=== PATIENT | female | born 1990 | race Caucasian/White ===

== ENCOUNTER 2017-01-27 11:29 | Emergency (ER) | payer SELFPAY | END 2017-01-27 12:55 | disposition left against medical advice (07) | LOC: ER 11:29 | DX: Z53.20 Procedure and treatment not carried out because of patient's decision for unspecified reasons (principal) ==

== ENCOUNTER 2017-03-30 18:46 | Emergency (ER) | payer MEDICAID ==
--- NOTE | 2017-03-30 19:23 | Emergency Department Record ---
History of Present Illness - General Chief complaint: complication Stated complaint: 7 WEEK PG AND SHE IS SPOTTING Time Seen by Provider: 03/30/17 19:11 Source: Patient Mode of Arrival: Wheelchair Limitations: No limitations Travel/Exposure to [place] Within 21 Days of Symptoms: No - History of Present Illness Initial comments: pt is and is currently approx 7 wks. lmp is 02/03/17. she started spotting this am and it is getting worse. she has pain in her rlq. she had an us at [facility]. MD Complaint: Abdominal pain, Vaginal bleeding Onset/Timin -: Hour(s) Location: Abdomen Radiation: RLQ Severity: Moderate Severity scale (1-10): 7 Quality: Cramping Consistency: Constant, Getting worse Improves with: None Worsens with: None Associated symptoms: Other Vaginal bleeding: Light 02/03/17 LMP (females 10-50): 2 months ago - Related Data : 2 Para: 0 Ab: 2 Home Medications Medication Instructions Recorded Confirmed Last Taken Vit,Calc76/Iron/Folic 1 each PO DAILY 03/30/17 03/30/17 Unknown [Prenatabs Rx Tablet] Allergies Allergy/AdvReac Type Severity Reaction Status Date / Time codeine Allergy VOMITING Verified 03/30/17 19:08 promethazine [From Phenergan] Allergy DIZZINESS Verified 03/30/17 19:08 sertraline [From Zoloft] Allergy PT UNSURE Verified 03/30/17 19:08 OF REACTION Review of Systems Reviewed: No additional complaints except as noted below Constitutional: Reports: As per HPI. Denies: Chills, Fever, Malaise, Night sweats, Weakness, Weight change Eyes: Reports: As per HPI. Denies: Eye discharge, Eye pain, Photophobia, Vision change ENT: Reports: As per HPI. Denies: Congestion, Dental pain, Ear pain, Epistaxis , Hearing loss, Throat pain Respiratory: Reports: As per HPI. Denies: Cough, Dyspnea, Hemoptysis, Stridor, Wheezes Cardiovascular: Reports: As per HPI. Denies: Arrhythmia, Chest pain, Dyspnea on exertion, Edema, Murmurs, Orthopnea, Palpitations, Paroxysmal nocturnal dyspnea, Rheumatic Fever, Syncope Endocrine: Reports: As per HPI. Denies: Fatigue, Heat or cold intolerance, Polydipsia, Polyuria Gastrointestinal: Reports: As per HPI, Abdominal pain. Denies: Constipation, Diarrhea, Hematemesis, Hematochezia, Melena, Nausea, Vomiting Genitourinary: Reports: As per HPI. Denies: Abnormal menses, Discharge, Dyspareunia, Dysuria, Frequency, Hematuria, Incontinence, Retention, Urgency Musculoskeletal: Reports: As per HPI. Denies: Arthralgia, Back pain, Gout, Joint swelling, Myalgia, Neck pain Skin: Reports: As per HPI. Denies: Bruising, Change in color, Change in hair/ nails, Lesions, Pruritus, Rash Neurological: Reports: As per HPI. Denies: Abnormal gait, Confusion, Headache, Numbness, Paresthesias, Seizure, Tingling, Tremors, Vertigo, Weakness Psychiatric: Reports: As per HPI. Denies: Anxiety, Auditory hallucinations, Depression, Homicidal thoughts, Suicidal thoughts, Visual hallucinations Hematological/Lymphatic: Reports: As per HPI. Denies: Anemia, Blood Clots, Easy bleeding, Easy bruising, Swollen glands Past Medical History - SOCIAL HISTORY Smoking Status: Never smoker Alcohol Use: None Drug Use: None - [employer] History : 2 Para: 0 A: 2 - RESPIRATORY Hx Respiratory Disorders: Yes Hx Asthma: Yes Comment:: allergies - CARDIOVASCULAR Hx Cardio Disorders: No - NEURO Hx Neuro Disorders: No - GI Hx GI Disorders: No - Hx Genitourinary Disorders: No - ENDOCRINE Hx Endocrine Disorders: No - MUSCULOSKELETAL Hx Musculoskeletal Disorders: No - PSYCH Hx Psych Problems: No - HEMATOLOGY/ONCOLOGY Hx Hematology/Oncology Disorders: No Family Medical History Any Significant Family History?: No Physical Exam - General General Appearance: Alert, Oriented x3, Cooperative, Mild distress - Head Head exam: Normal inspection - Eye Eye exam: Normal appearance, PERRL, EOMI Pupils: Normal accommodation - ENT ENT exam: Normal exam, Mucous membranes moist, Normal external ear exam, Normal orophraynx Ear exam: Normal external inspection. negative: External canal tenderness Nasal Exam: Normal inspection. negative: Discharge, Sinus tenderness Mouth exam: Normal external inspection, Tongue normal Teeth exam: Normal inspection. negative: Dental caries Throat exam: Normal inspection. negative: Tonsillar erythema, Tonsillar exudate - Neck Neck exam: Normal inspection, Full ROM. negative: Tenderness - Respiratory Respiratory exam: Normal lung sounds bilaterally. negative: Respiratory distress - Cardiovascular Cardiovascular Exam: Regular rate, Normal rhythm, Normal heart sounds - GI/Abdominal GI/Abdominal exam: Soft, Normal bowel sounds, Tenderness (rlq/adnexa) - Rectal Rectal exam: Deferred - exam: Vaginal bleeding, Other (cervix is open) - Extremities Extremities exam: Normal inspection, Full ROM, Normal capillary refill. negative: Tenderness - Back Back exam: Reports: Normal inspection, Full ROM. Denies: Muscle spasm, Rash noted, Tenderness - Neurological Neurological exam: Alert, CN II-XII intact, Normal gait, Oriented X3 - Psychiatric Psychiatric exam: Normal affect, Normal mood - Skin Skin exam: Dry, Intact, Normal color, Warm Course Vital Signs 03/30/17 18:57 Temperature 98.1 F Pulse Rate [ 89 Pulse Ox Probe] Respiratory 18 Rate Blood Pressure 121/82 [Left Arm] Pulse Ox 98 - Reevaluation(s) Reevaluation #1: 03/30/17 21:25 pt had us on 03/23 that showed iup 6wk 2 d w 110bpm. Reevaluation #2: 03/30/17 21:29 pt has less pain and did pass possible products of conception vs clot into toilet Reevaluation #3: 03/30/17 21:34 pain is gone and bleeding is scant Medical Decision Making - Lab Data Result diagrams: 03/30/17 19:21 Disposition Disposition: Discharge Clinical Impression: Spontaneous Disposition: Home, Self-Care Condition: (1) Good Instructions: Miscarriage (ED), Threatened Miscarriage (ED) Additional Instructions: rest. follow up with uke operator on sunday. return sooner if worse. no intercourse until cleared by uke operator. push fluids. return if bleeding heavily, 1 pad an hour. repeat ultrasound and betaquant in 2 days Forms: Patient Portal Access Quality - Quality Measures Quality Measures: N/A - Blood Pressure Screening Does Patient Have Any of the Following: No Blood Pressure Classification: Pre-Hypertensive BP Reading Systolic Measurement: 121 Diastolic Measurement: 82 Screening for High Blood Pressure: < Pre-Hypertensive BP, F/U Documented > [ G8950] Pre-Hypertensive Follow-up Interventions: Follow-up with rescreen every year.
[2017-03-30 19:37] LABS: BASO % 0.5 % (0-6); EOS % 1.9 % (0-6); GRAN % 57.2 % (47-80); HEMATOCRIT 40.3 % (35.0-47.0); HEMOGLOBIN 13.5 gm/dl (11.6-16.0); LYMPH % 31.2 % (16-45); MEAN CORPUSCULAR HEMOGLOBIN 29.2 pg (27-33); MEAN CORPUSCULAR HGB CONC 33.5 g/dl (32-36); MEAN PLATELET VOLUME 8.9 fl (7.4-10.4); MONO % 9.2 % (0-9); PLATELET COUNT 333 K/uL (130-400); RED BLOOD COUNT 4.63 M/uL (3.80-5.40); RED CELL DISTRIBUTION WIDTH 12.9 % (11.5-14.5); WHITE BLOOD COUNT W/O DIFF 7.9 K/uL (4.2-12.2)
== END 2017-03-30 21:49 | disposition home or self-care (01) ==
LOC: ER 18:46
DX: O20.0 Threatened abortion (principal); Z3A.01 Less than 8 weeks gestation of pregnancy
CPT/HCPCS: 84702; 85025; 86901; 99284

== ENCOUNTER 2018-09-18 13:48 | Emergency (ER) | payer MEDICAID ==
[2018-09-18] MEDS ORDERED: SODIUM CHLORIDE 0.9% 500 ML IV ONE (14:07)
[2018-09-18] MEDS ORDERED: ONDANSETRON HCL IV 4 MG/2 ML VIAL IV ONE (14:07)
--- NOTE | 2018-09-18 14:07 | Emergency Department Record ---
History of Present Illness - General Chief Complaint: Abdominal Pain Stated Complaint: chest pain Time Seen by Provider: 09/18/18 13:53 Source: Patient, Family Mode of Arrival: Ambulatory Limitations: No limitations - History of Present Illness Initial Comments: The patient is here due to a 10 minute hx of upper AP after eating lunch. The pain is sharp and stabbing and is associated with nausea but no vomiting. The patient did have issues with gallstones last year but that went away. She denies any other issues. MD Complaint: Abdominal pain Onset/Timin -: Minutes(s) Location: Epigastric Radiation: Chest Severity: Moderate Severity scale (1-10): 8 Quality: Sharp Consistency: Constant Improves With: Nothing Worsens With: Nothing Associated Symptoms: Nausea Treatments Prior to Arrival: NSAIDs - Related Data Patient : (unknown) Previous Rx's Medication Instructions Recorded Sucralfate [Carafate] 1 gm PO QID #28 tablet 09/18/18 Allergies Allergy/AdvReac Type Severity Reaction Status Date / Time codeine Allergy VOMITING Verified 09/18/18 13:51 promethazine [From Phenergan] Allergy DIZZINESS Verified 09/18/18 13:51 sertraline [From Zoloft] Allergy PT UNSURE Verified 09/18/18 13:51 OF REACTION Travel Screening - Travel/Exposure Within Last 30 Days Have you traveled within the last 30 days?: No - Travel/Exposure Within Last Year Have you traveled outside the [place] in the last year?: No - Additonal Travel Details Have you been exposed to anyone with a communicable illness?: No - Travel Symptoms Symptom Screening: None Review of Systems Constitutional: Denies: Chills, Fever Eyes: Denies: Eye discharge ENT: Denies: Congestion Respiratory: Denies: Cough, Dyspnea Past Medical History - SOCIAL HISTORY Smoking Status: Never smoker Alcohol Use: None Drug Use: None - RESPIRATORY Hx Respiratory Disorders: Yes Hx Asthma: Yes Comment:: allergies - CARDIOVASCULAR Hx Cardio Disorders: No - NEURO Hx Neuro Disorders: No - GI Hx GI Disorders: No - Hx Genitourinary Disorders: No - ENDOCRINE Hx Endocrine Disorders: No - MUSCULOSKELETAL Hx Musculoskeletal Disorders: No - PSYCH Hx Psych Problems: No - HEMATOLOGY/ONCOLOGY Hx Hematology/Oncology Disorders: No Family Medical History Any Significant Family History?: No Physical Exam - General General Appearance: Alert, Oriented x3, Cooperative, Mild distress - Head Head exam: Atraumatic, Normocephalic - Eye Eye exam: Normal appearance, PERRL - Neck Neck exam: Normal inspection, Full ROM. negative: Tenderness - Respiratory Respiratory exam: Normal lung sounds bilaterally. negative: Respiratory distress - Cardiovascular Cardiovascular Exam: Regular rate, Normal rhythm, Normal heart sounds - GI/Abdominal GI/Abdominal exam: Soft, Tenderness (There is mild epigastric tenderness with a very soft abdomen.). negative: Normal bowel sounds, Guarding, Hypoactive bowel sounds, Rebound - Extremities Extremities exam: Normal inspection, Full ROM, Normal capillary refill. negative: Tenderness - Neurological Neurological exam: Alert. negative: Motor sensory deficit - Psychiatric Psychiatric exam: Anxious Course Vital Signs 09/18/18 09/18/18 13:52 13:56 Temperature 98 F 96.7 F L Pulse Rate 84 Pulse Rate [ 96 H Left] Respiratory 20 21 Rate Blood Pressure 117/78 Blood Pressure 117/78 [Right Arm] Pulse Ox 100 99 - Reevaluation(s) Reevaluation #1: The patient is doing 100% better at this time. She states her pain has resolved and she has no pain or abdominal tenderness on exam. She is up walking with no difficulty. I did discuss the issues with the gallstones with the patient and will refer her to Dr. Mack. 09/18/18 15:47 Medical Decision Making - Data Complexity MDM Data: Labs Ordered and/or Reviewed, X-Ray Ordered and/or Reviewed - Lab Data Result diagrams: 09/18/18 14:30 09/18/18 14:30 - Radiology Data Radiology results: Report reviewed (US: gallstones, O/W neg.) Disposition Disposition: Discharge Clinical Impression: Biliary colic Disposition: Home, Self-Care Condition: (2) Stable Instructions: Biliary Colic (ED) Additional Instructions: Please take the Carafate as directed and eat a very bland diet with no fatty or fried foods. Please see Dr. Mack in the [facility] next week. Return to the ER for any worsening symptoms. Prescriptions: Sucralfate [Carafate] 1 gm PO QID #28 tablet Referrals: [facility] Special[facility] [Provider Group] Forms: Patient Portal Access Time of Disposition: 15:50 Quality - Quality Measures Quality Measures: N/A - Blood Pressure Screening View Details: Yes Does Patient Have Any of the Following: No Blood Pressure Classification: Normal BP Reading Systolic Measurement: 117 Diastolic Measurement: 78 Screening for High Blood Pressure: < Normal BP, F/U Not Required > [G7347]
[2018-09-18] MEDS ORDERED: MAGNESIUM HYDROXIDE/AL HYDROX 30 ML, LIDOCAINE VISC 2% 15ML 15 ML PO ONE ×2 (14:08)
[2018-09-18 14:57] LABS: ABSOLUTE NEUTROPHIL COUNT 4.87; BASO % 0.5 % (0-6); EOS % 1.6 % (0-6); GRAN % 56.4 % (47-80); HEMATOCRIT 45.3 % (35.0-47.0); HEMOGLOBIN 15.1 gm/dl (11.6-16.0); LYMPH % 32.3 % (16-45); MEAN CELL VOLUME 85.6 fl (81-97); MEAN CORPUSCULAR HEMOGLOBIN 28.5 pg (27-33); MEAN CORPUSCULAR HGB CONC 33.3 g/dl (32-36); MEAN PLATELET VOLUME 8.9 fl (7.4-10.4); MONO % 9.2 % (0-9); PLATELET COUNT 345 K/uL (130-400); RED BLOOD COUNT 5.29 M/uL (3.80-5.40); RED CELL DISTRIBUTION WIDTH 13.3 % (11.5-14.5); WHITE BLOOD COUNT W/O DIFF 8.6 K/uL (4.2-12.2)
[2018-09-18 15:03] LABS: BLOOD UREA NITROGEN 12 mg/dL (6-20); CREATININE 0.6 mg/dL (0.5-0.9); EST GLOMERULAR FILTRATION RATE > 60 mL/min; TOTAL PROTEIN 7.1 g/dL (6.6-8.7)
[2018-09-18 15:04] LABS: LIPASE 27 U/L (13-60)
[2018-09-18 15:05] LABS: GLUCOSE,RANDOM 107 mg/dL (74-109)
[2018-09-18 15:08] LABS: ALBUMIN 4.7 g/dL (4.0-5.0); ALKALINE PHOSPHATASE 117 U/L (35-104); ALT/SGPT 21 U/L (<33); AST/SGOT 20 U/L (10.0-35.0)
[2018-09-18 15:12] LABS: BILIRUBIN,DIRECT < 0.2 mg/dL (0-0.3)
--- NOTE | 2018-09-20 06:01 | ULTRASOUND REPORT ---
EXAM: ULTRASOUND ABDOMEN, LIMITED HISTORY: MIDLINE EPIGASTRIC PAIN TODAY, HISTORY OF GALLSTONES. TECHNIQUE: Realtime ultrasound examination of the right upper quadrant. COMPARISON: None. FINDINGS: The majority of the pancreas is visualized and appears essentially negative with no pancreatic mass or peripancreatic fluid collection evident. Liver appears negative with no hepatic mass or intrahepatic biliary dilatation seen. Right kidney measures about 10 cm in length with no hydronephrosis evident. There are numerous echogenic foci in the gallbladder lumen demonstrating shadowing and movement consistent with cholelithiasis. No diffuse gallbladder wall thickening or pericholecystic fluid collection evident and the factory hand indicates a negative sonographic Orta sign today. Common duct was seen and is within normal limits for size. IMPRESSION: 1. CHOLELITHIASIS. 2. REMAINDER OF THE RIGHT UPPER QUADRANT ABDOMEN ULTRASOUND APPEARED ESSENTIALLY NEGATIVE WITH NO BILIARY DILATATION IDENTIFIED. NO HYDRONEPHROSIS INVOLVING THE RIGHT KIDNEY EVIDENT. JOB NUMBER: [id number] MTDD
== END 2018-09-18 16:10 | disposition home or self-care (01) ==
LOC: ER 13:48
DX: K80.50 Calculus of bile duct without cholangitis or cholecystitis without obstruction (principal); R11.2 Nausea with vomiting, unspecified
CPT/HCPCS: 99284 ×2; 96374; 83690; 85025; 80076; 80048; 84703; 76705; J2405

== ENCOUNTER 2018-10-14 07:32 | Day surgery (SDC) | payer MEDICAID ==
[~2018-10-14 07:32] MED LIST: ACETAMINOPHEN 1,000 MG/100 ML BTL IVPB ONE; FAMOTIDINE 20MG TABLET PO ONE; MECLIZINE 25 MG TABLET PO ONE; METOCLOPRAMIDE 10 MG TABLET PO ONE
[2018-10-14] MEDS ORDERED: FENTANYL PF 100MCG/2ML VIAL IV ONE (07:33)
[2018-10-14] MEDS ORDERED: ROCURONIUM BROMIDE 50MG/5ML VIAL IV ONE (07:33)
[2018-10-14] MEDS ORDERED: MIDAZOLAM HCL 2MG/2ML VIAL IV ONE (07:33)
[2018-10-14] MEDS ORDERED: KETOROLAC 30 MG/ML VIAL IVP ONE (07:33)
[2018-10-14] MEDS ORDERED: SUGAMMADEX SODIUM 200 MG/2 ML VIAL IV ONE (07:33)
[2018-10-14] MEDS ORDERED: PROPOFOL 10 MG/ML VIAL IV ONE (07:33)
[2018-10-14] MEDS ORDERED: ONDANSETRON HCL IV 4 MG/2 ML VIAL IVP ONE ×2 (07:33→10:22)
[2018-10-14] MEDS ORDERED: LIDOCAINE 2% MDV (20MG/ML) 20ML VIAL IV ONE (07:33)
[2018-10-14] MEDS ORDERED: GLYCOPYRROLATE 0.2 MG/ML ML IV ONE (07:33)
[2018-10-14] MEDS ORDERED: SEVOFLURANE 250 ML INH ONE (07:33)
[2018-10-14] MEDS ORDERED: SUCCINYLCHOLINE 20 MG/ML 10ML IVP ONE (07:33)
[2018-10-14] MEDS ORDERED: DEXAMETHASONE 4 MG/ML 1ML VIAL IVP ONE (07:33)
[2018-10-14] MEDS ORDERED: RINGERS SOLUTION,LACTATED 1,000 ML IV ONE ×2 (08:00→09:39)
[2018-10-14] MEDS ORDERED: BUPIVACAINE 0.25% W/EPI MPF 30ML VIAL SQ ONE ×2 (08:15)
[2018-10-14] MEDS ORDERED: HYDROCODONE/APAP 5/325MG TABLET PO PRN (10:22)
--- NOTE | 2018-10-15 13:10 | Operative Note ---
DATE OF SURGERY: 10/14/2018 SURGEON: Chase Mack DO PREOPERATIVE DIAGNOSIS: Cholelithiasis with chronic cholecystitis. POSTOPERATIVE DIAGNOSIS: Cholelithiasis with chronic cholecystitis. OPERATION: Laparoscopic cholecystectomy. PROCEDURE: The patient is a 27-year-old female who was brought to the operating room and placed in a supine position. General anesthesia was administered per the department of anesthesia. The patient's abdomen was prepped and draped in the usual sterile fashion. The infraumbilical region was anesthetized with a total of 5 mL of 0.25% Sensorcaine with epinephrine. A 2 cm infraumbilical incision was made. This was carried down to the anterior rectus fascia. This was incised. Arash clamps were placed on the fascial edges and brought up into the wound. Stay sutures of 0 Vicryl were placed. Posterior rectus sheath was identified and incised. The peritoneal cavity was entered bluntly. At this time, a 10 mm blunt Elton port was placed. Adequate pneumoperitoneum was established. Under direct visualization, additional 5 mm epigastric and two 5 mm right subcostal ports were placed. The patient was then rotated into reverse Trendelenburg with rotation to left. The gallbladder was identified. This was retracted in a cephalad and lateral direction opening up the angle of Calot. The hepatocystic triangle was thoroughly dissected out. There was no aberrant anatomy, no posterior ductal structures. The distal half of the gallbladder was released from the cystic plate. We had excellent critical view of safety. The cystic duct and cystic artery were both doubly clipped and cut in a standard fashion. Gallbladder was taken off the liver bed with [employer] Harmonic. This was extracted through the umbilical port. Right upper quadrant was rechecked and found to be hemostatic. No bleeding. No bile leaking. No bowel injury noted. The patient was leveled out. The pneumoperitoneum was released. All ports were removed. The fascia was closed with 0 Vicryl in a [id number] fashion. The skin at all ports was closed with 4-0 Vicryl. The patient was taken to the recovery room in stable condition. FINDINGS AT THE TIME OF SURGERY: Chronic cholecystitis. MTDD
== END 2018-10-14 11:07 | disposition home or self-care (01) ==
LOC: SUR 07:32
PROVIDERS: ATTEND Surgery
DX: K80.10 Calculus of gallbladder with chronic cholecystitis without obstruction (principal); E66.9 Obesity, unspecified
CPT/HCPCS: 81025; J0330; J1885; J2405; J3490; J7120

== ENCOUNTER 2018-12-10 03:20 | Emergency (ER) | payer MEDICAID ==
[2018-12-10] MEDS ORDERED: PENICILLIN V POTASSIUM 250 MG TAB PO ONE (03:49)
--- NOTE | 2018-12-10 03:55 | Emergency Department Record ---
History of Present Illness - General Chief complaint: Dental Stated complaint: FACIAL SWELLING X 3 MONTHS Time Seen by Provider: 12/10/18 03:39 Source: Patient Mode of Arrival: Ambulatory Limitations: No limitations - History of Present Illness Initial comments: pt has extraction of tooth scheduled for the end of this month. she was at the dentist yesterday. the dentist told her if it had swelling to come to the ed for abx. today it started swelling. pt took motrin and pain is better MD complaint: Tooth pain Onset/Timin -: Month(s) Severity scale (1-10): 6 Quality: Aching, Other Consistency: Intermittent Improves with: NSAID Worsens with: Eating, Swallowing Context- Dental: History of dental caries, Poor dental care Associated Symptoms: Toothache - Related Data Previous Rx's Medication Instructions Recorded Penicillin V Potassium 500 mg PO Q6HR #28 tablet 12/10/18 Allergies Allergy/AdvReac Type Severity Reaction Status Date / Time codeine Allergy VOMITING Verified 12/10/18 03:36 promethazine [From Phenergan] Allergy DIZZINESS Verified 12/10/18 03:36 sertraline [From Zoloft] Allergy PT UNSURE Verified 12/10/18 03:36 OF REACTION Travel Screening - Travel/Exposure Within Last 30 Days Have you traveled within the last 30 days?: No - Travel/Exposure Within Last Year Have you traveled outside the [place] in the last year?: No - Additonal Travel Details Have you been exposed to anyone with a communicable illness?: No - Travel Symptoms Symptom Screening: None Review of Systems Reviewed: No additional complaints except as noted below Constitutional: Reports: As per HPI. Denies: Chills, Fever, Malaise, Night sweats, Weakness, Weight change Eyes: Reports: As per HPI. Denies: Eye discharge, Eye pain, Photophobia, Vision change ENT: Reports: As per HPI, Dental pain. Denies: Congestion, Ear pain, Epistaxis, Hearing loss, Throat pain Respiratory: Reports: As per HPI. Denies: Cough, Dyspnea, Hemoptysis, Stridor, Wheezes Cardiovascular: Reports: As per HPI. Denies: Arrhythmia, Chest pain, Dyspnea on exertion, Edema, Murmurs, Orthopnea, Palpitations, Paroxysmal nocturnal dyspnea, Rheumatic Fever, Syncope Endocrine: Reports: As per HPI. Denies: Fatigue, Heat or cold intolerance, Polydipsia, Polyuria Gastrointestinal: Reports: As per HPI. Denies: Abdominal pain, Constipation, Diarrhea, Hematemesis, Hematochezia, Melena, Nausea, Vomiting Genitourinary: Reports: As per HPI. Denies: Abnormal menses, Discharge, Dyspareunia, Dysuria, Frequency, Hematuria, Incontinence, Retention, Urgency Musculoskeletal: Reports: As per HPI. Denies: Arthralgia, Back pain, Gout, Joint swelling, Myalgia, Neck pain Skin: Reports: As per HPI. Denies: Bruising, Change in color, Change in hair/nails, Lesions, Pruritus, Rash Neurological: Reports: As per HPI. Denies: Abnormal gait, Confusion, Headache, Numbness, Paresthesias, Seizure, Tingling, Tremors, Vertigo, Weakness Psychiatric: Reports: As per HPI. Denies: Anxiety, Auditory hallucinations, Depression, Homicidal thoughts, Suicidal thoughts, Visual hallucinations Hematological/Lymphatic: Reports: As per HPI. Denies: Anemia, Blood Clots, Easy bleeding, Easy bruising, Swollen glands Past Medical History - SOCIAL HISTORY Smoking Status: Never smoker Alcohol Use: None Drug Use: None - RESPIRATORY Hx Respiratory Disorders: Yes Hx Asthma: Yes (IN THE PAST) - CARDIOVASCULAR Hx Cardio Disorders: No - NEURO Hx Neuro Disorders: No - GI Hx GI Disorders: Yes Hx Abdominal Pain: Yes Hx Nausea/Vomiting: Yes - Hx Genitourinary Disorders: No - ENDOCRINE Hx Endocrine Disorders: No - MUSCULOSKELETAL Hx Musculoskeletal Disorders: No - PSYCH Hx Psych Problems: No - HEMATOLOGY/ONCOLOGY Hx Hematology/Oncology Disorders: No Family Medical History Any Significant Family History?: Yes Hx Diabetes: Brother/Sister Hx Heart Disease: Grandparents Physical Exam - General General Appearance: Alert, Oriented x3, Cooperative, Mild distress - Head Head exam: Normal inspection - Eye Eye exam: Normal appearance, PERRL, EOMI Pupils: Normal accommodation - ENT ENT exam: Normal exam, Mucous membranes moist, Normal external ear exam, Normal orophraynx, TM's normal bilaterally Ear exam: Normal external inspection. negative: External canal tenderness Nasal Exam: Normal inspection. negative: Discharge, Sinus tenderness Mouth exam: Normal external inspection, Tongue normal, Other (swelling of r lower jaw) Teeth exam: Dental caries, Dental tenderness # Throat exam: Normal inspection. negative: Tonsillar erythema, Tonsillar exudate - Neck Neck exam: Normal inspection, Full ROM. negative: Tenderness - Respiratory Respiratory exam: Normal lung sounds bilaterally. negative: Respiratory distress - Cardiovascular Cardiovascular Exam: Regular rate, Normal rhythm, Normal heart sounds - GI/Abdominal GI/Abdominal exam: Soft, Normal bowel sounds. negative: Tenderness - Rectal Rectal exam: Deferred - exam: Deferred - Extremities Extremities exam: Normal inspection, Full ROM, Normal capillary refill. negative: Tenderness - Back Back exam: Reports: Normal inspection, Full ROM. Denies: Muscle spasm, Rash noted, Tenderness - Neurological Neurological exam: Alert, CN II-XII intact, Normal gait, Oriented X3 - Psychiatric Psychiatric exam: Normal affect, Normal mood - Skin Skin exam: Dry, Intact, Normal color, Warm Course Vital Signs 12/10/18 12/10/18 03:26 03:27 Temperature 98.6 F 98.6 F Pulse Rate [ 87 Left] Respiratory 16 Rate Blood Pressure 114/73 [Left Arm] Pulse Ox 97 Disposition Disposition: Discharge Clinical Impression: Dental abscess Disposition: Home, Self-Care Condition: (1) Good Instructions: Dental Abscess (ED) Additional Instructions: follow up with dentist rose mary. return sooner if worse Prescriptions: Penicillin V Potassium 500 mg PO Q6HR #28 tablet Quality - Quality Measures Quality Measures: N/A - Blood Pressure Screening Does Patient Have Any of the Following: No Blood Pressure Classification: Normal BP Reading Systolic Measurement: 114 Diastolic Measurement: 73 Screening for High Blood Pressure: < Normal BP, F/U Not Required > [G8783]
== END 2018-12-10 04:11 | disposition home or self-care (01) ==
LOC: ER 03:20
DX: K04.7 Periapical abscess without sinus (principal)
CPT/HCPCS: 99283